=== PATIENT | male | born 1970 | race African-American/Black ===

== ENCOUNTER 2024-01-18 18:25 | Emergency (ER) | payer OTHER ==
[2024-01-18 18:33] VITALS: BP 136/80; PULSE 69; RESP 18; TEMP 97.6; BMI 18.3
== END 2024-01-18 20:32 | disposition home or self-care (01) ==
LOC: JERFT 18:25
DX: M54.6 Pain in thoracic spine (principal); R42 Dizziness and giddiness; V49.40XA Driver injured in collision with unspecified motor vehicles in traffic accident, initial encounter; Y92.410 Unspecified street and highway as the place of occurrence of the external cause
CPT/HCPCS: 71046-TC-FY; 99283-25